=== PATIENT | male | born 1945 | race Caucasian/White ===

== ENCOUNTER 2017-02-06 16:37 | Inpatient (IN) | payer MEDICARE ==
[~2017-02-06] VITALS: Ht 177.8 cm; Wt 89.0 kg
[2017-02-06 16:51] VITALS: BP 172/79; PULSE 85; RESP 18; TEMP 98.8; O2SAT 99
[2017-02-06] MEDS ORDERED: PRAV40TA2 PO (16:59)
[2017-02-06] MEDS ORDERED: LEVO.05 PO (16:59)
[2017-02-06] MEDS ORDERED: GLIP5TAB8 PO (16:59)
[2017-02-06] MEDS ORDERED: ASPI-516 CHEW (16:59)
[2017-02-06] MEDS ORDERED: AMLO2.5T PO (16:59)
[2017-02-06] MEDS ORDERED: METF500T PO (16:59)
[2017-02-06] MEDS ORDERED: LISI40TA PO (16:59)
[2017-02-06] MEDS ORDERED: SITA1TAB2 PO (16:59)
[2017-02-06 17:00] VITALS: O2SAT 99
[2017-02-06] MEDS ORDERED: SODIUM CHLORIDE 0.9% FLUSH 10 ML FLUSH IVF PRN (17:00)
[2017-02-06] MEDS ORDERED: ONDANSETRON HCL 4 MG/2 ML VIAL IVP ONE (17:00)
[2017-02-06] MEDS ORDERED: MORPHINE SULFATE 4 MG/ML INJ IV PUSH ONE (17:00)
[2017-02-06 17:36] LABS: BASOPHIL # 0.1 TH/MM3 (0-0.2); BASOPHIL % 0.5 % (0.0-2.0); EOSINOPHIL # 0.1 TH/MM3 (0-0.4); EOSINOPHIL % 0.6 % (0.0-4.0); HEMATOCRIT 37.3 % (39.0-51.0); HEMOGLOBIN 12.9 GM/DL (13.0-17.0); LYMPH % 13.4 % (9.0-44.0); LYMPHOCYTE # 1.5 TH/MM3 (1.0-4.8); MEAN CELL VOLUME 85.8 FL (80.0-100.0); MEAN CORPUSCULAR HEMOGLOBIN 29.6 PG (27.0-34.0); MEAN CORPUSCULAR HGB CONC 34.4 % (32.0-36.0); MEAN PLATELET VOLUME 8.6 FL (7.0-11.0); MONO % 6.5 % (0.0-8.0); MONOCYTE # 0.7 TH/MM3 (0-0.9); PLATELET COUNT 184 TH/MM3 (150-450); RED BLOOD COUNT 4.35 MIL/MM3 (4.50-5.90); RED CELL DISTRIBUTION WIDTH 13.8 % (11.6-17.2); WHITE BLOOD COUNT 11.3 TH/MM3 (4.0-11.0)
[2017-02-06] MEDS ORDERED: MORPHINE SULFATE 8 MG/ML INJ ONE (17:45)
[2017-02-06 17:47] LABS: BILIRUBIN, URINE NEG (NEG); BLOOD, URINE NEG (NEG); GLUCOSE,URINE NEG (NEG); HYALINE CAST, URINE 6 /lpf (RARE); KETONE, URINE NEG (NEG); MUCUS URINE FEW /lpf (OCC); NITRITE,URINE NEG (NEG); PH, URINE 5.5 (5.0-8.5); URINE COLOR YELLOW (YELLW/STRAW); URINE LEUKOCYTE ESTERASE NEG (NEG)
[2017-02-06 17:51] LABS: PROTHROMBIN TIME - PATIENT 10.5 SEC (9.8-11.6)
--- NOTE | 2017-02-06 17:56 | RADRPT ---
EXAM DATE/TIME: 02/06/2017 17:18 [facility] COMPARISON: No previous studies available for comparison. INDICATIONS : Fall today. Trauma. MEDICAL HISTORY : Hypertension. Diabetes mellitus type II. SURGICAL HISTORY : None. ENCOUNTER: Initial ACUITY: 1 day PAIN SCORE: 0/10 LOCATION: Bilateral Chest. FINDINGS: The lungs are clear without infiltrate, nodule, or mass. There is no appreciable pleural effusion fo r technique. Heart and mediastinum are unremarkable. CONCLUSION: No acute cardiopulmonary disease. Sofia Nicholson MD on February 06, 2017 at 17:52 Board Certified Radiologist. This report was verified electronically.
[2017-02-06 17:57] LABS: ALBUMIN 3.4 GM/DL (3.4-5.0); ALT (GPT) 18 U/L (12-78); AST (GOT) 15 U/L (15-37); BICARBONATE 25.7 MEQ/L (21.0-32.0); BLOOD UREA NITROGEN 28 MG/DL (7-18); CALCIUM 9.6 MG/DL (8.5-10.1); CHLORIDE 109 MEQ/L (98-107); CREATININE 1.02 MG/DL (0.60-1.30); GLOMERULAR FILTRATION RATE 72 ML/MIN (>89); GLUCOSE,RANDOM 126 MG/DL (74-106); SODIUM (NA) 142 MEQ/L (136-145)
--- NOTE | 2017-02-06 17:58 | RADRPT ---
EXAM DATE/TIME: 02/06/2017 17:18 [facility] COMPARISON: No previous studies available for comparison. INDICATIONS : Fell today. Compains of right hip pain. MEDICAL HISTORY : None. SURGICAL HISTORY : None. ENCOUNTER: Initial ACUITY: 1 day PAIN SCORE: 9/10 LOCATION: Right Hip. FINDINGS: There is a fracture of greater trochanter slightly . Bony structures are osteopenic. CONCLUSION: Right greater trochanteric fracture. Sofia Nicholson MD on February 06, 2017 at 17:55 Board Certified Radiologist. This report was verified electronically.
[2017-02-06 17:59] LABS: ALKALINE PHOSPHATASE 74 U/L (45-117); TOTAL BILIRUBIN ADULT 0.3 MG/DL (0.2-1.0); TOTAL PROTEIN 6.8 GM/DL (6.4-8.2)
[2017-02-06] MEDS ORDERED: NS + KCL 20 MEQ INJ 1,000 ML IV SCH (18:15)
--- NOTE | 2017-02-06 18:15 | PD ---
HPI Chief Complaint: Fall Time Seen by Provider: 16:44 Travel History International Travel<30 days: No Contact w/Intl Traveler<30days: No Traveled to known affect area: No History of Present Illness HPI The patient is a 71-year-old male who presents emergency department via EMS for right hip pain after fall. The patient states he fell in his driveway earlier today, landing on the right hip. The patient was unable to bear weight or ambulate after the fall. The pain is located in the right hip and radiates into the right leg. He denies any loss of consciousness with the fall. The patient denies any headache, neck pain, chest pain, shortness breath , nausea, vomiting, or abdominal pain. The patient recently moved to the area from the [facility], does not have a local primary physician. He does not have a local orthopedist. He denies any numbness certainly to the right lower extremity. The patient's symptoms are moderate, there are no current alleviating or exacerbating factors. The patient did receive morphine 2 mg intravenously prior to arrival by EMS. PFSH Past Medical History High Cholesterol: Yes Diabetes: Yes Patient Takes Glucophage: Yes Hypertension: Yes Thyroid Disease: Yes Past Surgical History Narrative Surgical Tonsillectomy Other Surgery: Yes (THYROIDECTOMY) Social History Alcohol Use: No Tobacco Use: No Substance Use: No Allergies-Medications (Allergen,Severity, Reaction): Coded Allergies: Sulfa (Sulfonamide Antibiotics) (Verified Allergy, Unknown, 02/06/17) bee venom protein (honey bee) (Verified Allergy, Unknown, 02/06/17) Reported Meds & Prescriptions Reported Meds & Active Scripts Active Reported Januvia (Sitagliptin Phosphate) 100 Mg Tab 100 Mg PO DAILY Metformin (Metformin HCl) 500 Mg Tab 500 Mg PO BIDPC Synthroid (Levothyroxine Sodium) 50 Mcg Tab 50 Mcg PO DAILY Aspirin 81 Mg Chew 81 Mg CHEW ONCE Lisinopril 40 Mg Tab 40 Mg PO DAILY Pravastatin 40 Mg Tab 40 Mg PO DAILY Glipizide 5 Mg Tab 2.5 Mg PO DAILY Take 30 minutes before a meal Amlodipine (Amlodipine Besylate) 2.5 Mg Tab 2.5 Mg PO DAILY Review of Systems Except as stated in HPI: all other systems reviewed are Neg General / Constitutional: No: Fever HENT: No: Headaches, Neck Pain Cardiovascular: No: Chest Pain or Discomfort Respiratory: No: Shortness of Breath Gastrointestinal: No: Nausea, Vomiting, Abdominal Pain Musculoskeletal: Positive: Limited ROM, Pain Neurologic: No: Paresthesia, Sensory Disturbance Physical Exam Narrative GENERAL: Awake, alert, pleasant 71-year-old male who appears his stated age and is in no acute respiratory distress. SKIN: Focused skin assessment warm/dry. Superficial abrasion of the extensor surface of the right elbow. HEAD: Atraumatic. Normocephalic. EYES: Pupils equal and round. No scleral icterus. No injection or drainage. ENT: No nasal bleeding or discharge. Mucous membranes pink and moist. NECK: Trachea midline. No JVD. CARDIOVASCULAR: Regular rate and rhythm. No murmur appreciated. RESPIRATORY: No accessory muscle use. Clear to auscultation. Breath sounds equal bilaterally. GASTROINTESTINAL: Abdomen soft, non-tender, nondistended. No rebound tenderness. MUSCULOSKELETAL: The right leg appears slightly longer than the left leg. The patient has tenderness over the lateral aspect of the right hip. Limited ability to flex the hip and knee secondary to pain. Positive dorsalis pedal pulses. NEUROLOGICAL: Awake and alert. No obvious cranial nerve deficits. Motor grossly within normal limits. Normal speech. Sensation is symmetric on the right lower extremity. Nonfocal. PSYCHIATRIC: Appropriate mood and affect; insight and judgment normal. Data Data Last Documented VS Vital Signs Date Time Temp Pulse Resp B/P (MAP) Pulse Ox O2 Delivery O2 Flow Rate FiO2 02/06/17 17:00 99 Room Air 02/06/17 16:51 98.8 85 18 172/79 (110) Orders Orders Electrocardiogram (02/06/17 16:51) Complete Blood Count With Diff (02/06/17 16:51) Comprehensive Metabolic Panel (02/06/17 16:51) Prothrombin Time / Inr (Pt) (02/06/17 16:51) Act Partial Throm Time (Ptt) (02/06/17 16:51) Urinalysis - C+S If Indicated (02/06/17 16:51) Type And Screen (02/06/17 16:51) Chest, Single Ap (02/06/17 16:51) Hip, Uni(Ap&Lat) W Ap Pelvis (02/06/17 16:51) Iv Access Insert/Monitor (02/06/17 16:51) Oximetry (02/06/17 16:51) Ice/Cold Pack (02/06/17 16:51) Ecg Monitoring (02/06/17 16:51) Morphine Inj (Morphine Inj) (02/06/17 17:00) Ondansetron Inj (Zofran Inj) (02/06/17 17:00) Sodium Chloride 0.9% Flush (Ns Flush) (02/06/17 17:00) Morphine Inj (Morphine Inj) (02/06/17 17:45) Labs Laboratory Tests Test 02/06/17 17:10 White Blood Count 11.3 TH/MM3 Red Blood Count 4.35 MIL/MM3 Hemoglobin 12.9 GM/DL Hematocrit 37.3 % Mean Corpuscular Volume 85.8 FL Mean Corpuscular Hemoglobin 29.6 PG Mean Corpuscular Hemoglobin Concent 34.4 % Red Cell Distribution Width 13.8 % Platelet Count 184 TH/MM3 Mean Platelet Volume 8.6 FL Neutrophils (%) (Auto) 79.0 % Lymphocytes (%) (Auto) 13.4 % Monocytes (%) (Auto) 6.5 % Eosinophils (%) (Auto) 0.6 % Basophils (%) (Auto) 0.5 % Neutrophils # (Auto) 9.0 TH/MM3 Lymphocytes # (Auto) 1.5 TH/MM3 Monocytes # (Auto) 0.7 TH/MM3 Eosinophils # (Auto) 0.1 TH/MM3 Basophils # (Auto) 0.1 TH/MM3 CBC Comment AUTO DIFF Prothrombin Time 10.5 SEC Prothromb Time International Ratio 1.0 RATIO Activated Partial Thromboplast Time 20.2 SEC Urine Color YELLOW Urine Turbidity CLEAR Urine pH 5.5 Urine Specific [place] 1.020 Urine Protein TRACE mg/dL Urine Glucose (UA) NEG mg/dL Urine Ketones NEG mg/dL Urine Occult Blood NEG Urine Nitrite NEG Urine Bilirubin NEG Urine Urobilinogen LESS THAN 2.0 MG/DL Urine Leukocyte Esterase NEG Urine WBC 1 /hpf Urine Hyaline Casts 6 /lpf Urine Mucus FEW /lpf Microscopic Urinalysis Comment CATH-CULT NOT IND Blood Urea Nitrogen 28 MG/DL Creatinine 1.02 MG/DL Random Glucose 126 MG/DL Total Protein 6.8 GM/DL Albumin 3.4 GM/DL Calcium Level 9.6 MG/DL Alkaline Phosphatase 74 U/L Aspartate Amino Transf (AST/SGOT) 15 U/L Alanine Aminotransferase (ALT/SGPT) 18 U/L Total Bilirubin 0.3 MG/DL Sodium Level 142 MEQ/L Potassium Level 4.1 MEQ/L Chloride Level 109 MEQ/L Carbon Dioxide Level 25.7 MEQ/L Anion Gap 7 MEQ/L Estimat Glomerular Filtration Rate 72 ML/MIN [facility] Medical Decision Making Medical Screen Exam Complete: Yes Emergency Medical Condition: Yes Medical Record Reviewed: Yes Interpretation(s) Laboratory Tests Test 02/06/17 17:10 White Blood Count 11.3 TH/MM3 Red Blood Count 4.35 MIL/MM3 Hemoglobin 12.9 GM/DL Hematocrit 37.3 % Mean Corpuscular Volume 85.8 FL Mean Corpuscular Hemoglobin 29.6 PG Mean Corpuscular Hemoglobin Concent 34.4 % Red Cell Distribution Width 13.8 % Platelet Count 184 TH/MM3 Mean Platelet Volume 8.6 FL Neutrophils (%) (Auto) 79.0 % Lymphocytes (%) (Auto) 13.4 % Monocytes (%) (Auto) 6.5 % Eosinophils (%) (Auto) 0.6 % Basophils (%) (Auto) 0.5 % Neutrophils # (Auto) 9.0 TH/MM3 Lymphocytes # (Auto) 1.5 TH/MM3 Monocytes # (Auto) 0.7 TH/MM3 Eosinophils # (Auto) 0.1 TH/MM3 Basophils # (Auto) 0.1 TH/MM3 CBC Comment AUTO DIFF Prothrombin Time 10.5 SEC Prothromb Time International Ratio 1.0 RATIO Activated Partial Thromboplast Time 20.2 SEC Urine Color YELLOW Urine Turbidity CLEAR Urine pH 5.5 Urine Specific [place] 1.020 Urine Protein TRACE mg/dL Urine Glucose (UA) NEG mg/dL Urine Ketones NEG mg/dL Urine Occult Blood NEG Urine Nitrite NEG Urine Bilirubin NEG Urine Urobilinogen LESS THAN 2.0 MG/DL Urine Leukocyte Esterase NEG Urine WBC 1 /hpf Urine Hyaline Casts 6 /lpf Urine Mucus FEW /lpf Microscopic Urinalysis Comment CATH-CULT NOT IND Blood Urea Nitrogen 28 MG/DL Creatinine 1.02 MG/DL Random Glucose 126 MG/DL Total Protein 6.8 GM/DL Albumin 3.4 GM/DL Calcium Level 9.6 MG/DL Alkaline Phosphatase 74 U/L Aspartate Amino Transf (AST/SGOT) 15 U/L Alanine Aminotransferase (ALT/SGPT) 18 U/L Total Bilirubin 0.3 MG/DL Sodium Level 142 MEQ/L Potassium Level 4.1 MEQ/L Chloride Level 109 MEQ/L Carbon Dioxide Level 25.7 MEQ/L Anion Gap 7 MEQ/L Estimat Glomerular Filtration Rate 72 ML/MIN EKG reveals sinus rhythm with occasional supraventricular premature complex. Tall R wave in V1. X-ray the right hip reveals right greater trochanteric fracture X-ray chest reveals no acute cardiopulmonary disease Differential Diagnosis Differential diagnosis includes hip fracture, pelvic fracture, mechanical fall, closed head injury, femur fracture, back fracture. Narrative Course IV was established, labs are drawn and sent, the patient was placed on cardiac telemetry monitoring and continuous pulse oximetry monitoring. Chest x-ray, pelvis x-ray, and x-ray the right hip were obtained. The patient was bronze chaser morphine, Zofran, and placed on IV fluids. X-ray of the right hip reveals a greater trochanteric fracture, the patient is unable to bear weight. Therefore , patient will be minutes the medical service, because nothing by mouth, and will need orthopedic consultation. The patient recently moved to the area from [place], does not have a local primary physician and/or orthopedist. Therefore, the on-call medical service was paged for admission. Physician Communication Physician Communication I discussed the patient with the on-call medical service, Dr. Dockery, who agrees with admission. Diagnosis Primary Impression: Closed right hip fracture Qualified Codes: S72.001A - Fracture of unspecified part of neck of right femur, initial encounter for closed fracture Admitting Information Admitting Physician Requests: Admit Condition: Stable Mario Reno MD Feb 06, 2017 18:15
[2017-02-06 18:20] LABS: BANDS 2 % (0-6); LYMPHOCYTES 19 % (9-44); METAMYELOCYTES 1 % (0-1); MONOCYTES 10 % (0-8); POLYS (SEG NEUTROPHILS) 68 % (16-70)
[2017-02-06] MEDS ORDERED: HEPARIN SODIUM - SQ 10,000 UNITS/ML VIAL SQ ONE (18:30)
[2017-02-06] MEDS ORDERED: CITA20TA4 PO (18:41)
[2017-02-06] MEDS ORDERED: MAGNESIUM HYDROXIDE SUSP 30 ML CUP PO PRN (19:00)
[2017-02-06] MEDS ORDERED: BISACODYL 10 MG SUPP RECTAL PRN (19:00)
[2017-02-06] MEDS ORDERED: SODIUM CHLORIDE 0.9% FLUSH 10 ML FLUSH IV FLUSH PRN (19:00)
[2017-02-06] MEDS ORDERED: ONDANSETRON HCL 4 MG/2 ML VIAL IVP PRN (19:00)
[2017-02-06] MEDS ORDERED: SENNOSIDES 8.6 MG TAB PO PRN (19:00)
[2017-02-06] MEDS ORDERED: LACTULOSE SYRUP 20 GM/30 ML CUP PO PRN (19:00)
[2017-02-06] MEDS ORDERED: PILL SPLITTER OTHER PRN (19:00)
[2017-02-06] MEDS ORDERED: SODIUM CHLOR 0.9% 1000 ML INJ 1,000 ML IV SCH (19:00)
[2017-02-06] MEDS ORDERED: MORPHINE SULFATE 2 MG/ML INJ IV PUSH PRN (19:00)
[2017-02-06] MEDS ORDERED: NALOXONE HCL 0.4 MG/ML AMP IV PUSH PRN (19:00)
--- NOTE | 2017-02-06 19:07 | HHI.HP ---
HPI Service Family Medicine Primary Care Physician Unknown Admission Diagnosis right greater trochanter fracture, inability to bear weight Diagnoses: International Travel<30 Days: No Contact w/Intl Traveler<30days: No Known Affected Area: No History of Present Illness 71 yo male with h/o HTN, DM presenting after a mechanical fall. He was walking on his new driveway which is painted and he slipped due to the rainy weather. Did not hit his head. Denies any symptoms prior to the fall i.e. lightheadedness , dizziness, chest pain, SOB. After the fall he had severe hip pain on the right side and couldn't walk. He dragged himself into the house and called 911 who brought him to the ED. At present he feels well other than hip pain. Review of Systems Constitutional: DENIES: Fever, Weight loss, Chills Endocrine: DENIES: Polydipsia Eyes: DENIES: Blurred vision Ears, nose, mouth, throat: DENIES: Throat pain, Ear Pain Respiratory: DENIES: Cough, Shortness of breath Cardiovascular: DENIES: Chest pain, Palpitations Gastrointestinal: DENIES: Abdominal pain, Black stools, Bloody stools, Constipation, Diarrhea, Nausea, Vomiting Genitourinary: DENIES: Urinary frequency, Dysuria Musculoskeletal: COMPLAINS OF: Joint pain, Muscle aches, DENIES: Stiffness Integumentary: DENIES: Rash Hematologic/lymphatic: DENIES: Bruising Neurologic: DENIES: Abnormal gait, Headache, Localized weakness Psychiatric: DENIES: Anxiety, Depression Past Family Social History Past Medical History DM HTN High cholesterol Past Surgical History Partial thyroidectomy - 1980s L arm surgery after fracture Tonsillectomy Reported Medications Reported Meds & Active Scripts Active Reported Citalopram (Citalopram Hydrobromide) 20 Mg Tab 20 Mg PO DAILY Januvia (Sitagliptin Phosphate) 100 Mg Tab 100 Mg PO DAILY Metformin (Metformin HCl) 500 Mg Tab 500 Mg PO BIDPC Synthroid (Levothyroxine Sodium) 50 Mcg Tab 50 Mcg PO DAILY Aspirin 81 Mg Chew 81 Mg CHEW ONCE Lisinopril 40 Mg Tab 40 Mg PO DAILY Pravastatin 40 Mg Tab 40 Mg PO DAILY Glipizide 5 Mg Tab 2.5 Mg PO DAILY Take 30 minutes before a meal Amlodipine (Amlodipine Besylate) 2.5 Mg Tab 2.5 Mg PO DAILY Allergies: Coded Allergies: Sulfa (Sulfonamide Antibiotics) (Verified Allergy, Unknown, 02/06/17) bee venom protein (honey bee) (Verified Allergy, Unknown, 02/06/17) Active Ordered Medications Current Medications Medications (Trade) Dose Ordered Sig/Nirav Route Start Time Stop Time Status Last Admin Potassium Chloride/Sodium Chloride 1,000 ml @ 100 mls/hr Q10H IV 02/06/17 18:15 (Norvasc) 2.5 mg DAILY PO 02/07/17 09:00 (Aspirin Chew) 81 mg DAILY CHEW 02/07/17 09:00 (Synthroid) 50 mcg DAILY@0600 PO 02/07/17 06:00 (Pravachol) 40 mg DAILY PO 02/07/17 09:00 (CeleXA) 20 mg DAILY PO 02/07/17 09:00 (Prinivil) 40 mg HS PO 02/06/17 21:00 (Pill Splitter) 1 ea UNSCH PRN OTHER 02/06/17 19:00 Sodium Chloride 1,000 ml @ 100 mls/hr Q10H IV 02/06/17 19:00 (NS Flush) 2 ml UNSCH PRN IV FLUSH 02/06/17 19:00 (NS Flush) 2 ml BID IV FLUSH 02/06/17 21:00 (Zofran Inj) 4 mg Q6H PRN IVP 02/06/17 19:00 (Ambien) 5 mg HS PRN PO 02/06/17 21:00 (Narcan Inj) 0.4 mg UNSCH PRN IV PUSH 02/06/17 19:00 (Mary-Colace) 1 tab BID PO 02/06/17 21:00 (Milk Of Magnesia Liq) 30 ml Q12H PRN PO 02/06/17 19:00 (Senokot) 17.2 mg Q12H PRN PO 02/06/17 19:00 (Dulcolax Supp) 10 mg DAILY PRN RECTAL 02/06/17 19:00 (Lactulose Liq) 30 ml DAILY PRN PO 02/06/17 19:00 (Morphine Inj) 2 mg Q3H PRN IV PUSH 02/06/17 19:00 (Morphine Inj) 4 mg Q3H PRN IV PUSH 02/06/17 19:15 Acetaminophen 100 ml @ 400 mls/hr Q6H IV 02/06/17 20:00 (D50w (Vial) Inj) 50 ml UNSCH PRN IV PUSH 02/06/17 19:15 (Glucagon Inj) 1 mg UNSCH PRN OTHER 02/06/17 19:15 (NovoLOG SUPPLEMENTAL SCALE) 1 ACHS SLIDING SCALE SQ 02/06/17 21:00 (Levemir Inj) 5 units Q12HR SQ 02/06/17 21:00 Family History Father - HTN Mother - HTN, COPD Social History Tob - Light smoking but quit 30 years ago Alc - will have a glass of scotch a week (1 to 1.5 oz) Drugs - none Lives independently in a house with his dog Physical Exam Vital Signs Vital Signs Date Time Temp Pulse Resp B/P (MAP) Pulse Ox O2 Delivery O2 Flow Rate FiO2 02/06/17 17:00 99 Room Air 02/06/17 16:51 98.8 85 18 172/79 (110) 99 Physical Exam GENERAL: WDWN, NAD SKIN: No rashes, ecchymoses or lesions. Cool and dry. HEAD: NC/AT EYES: PERRL. EOMI. No conjunctival injection or drainage. ENT: MMM, OP without erythema, tonsillar swelling, or exudate. NECK: Supple. No JVD. CARDIOVASCULAR: NRRR. Normal S1/S2. No MRG RESPIRATORY: CTAB. No crackles or wheezes. GASTROINTESTINAL: Abdomen soft, non-distended, non-tender. No hepato- splenomegaly or palpable masses. MUSCULOSKELETAL: Extremities without clubbing, cyanosis, or edema. R leg shortened, externally rotated. No ecchymosis over R hip. NEUROLOGICAL: Awake and alert. Cranial nerves II through XII grossly intact. Normal speech. Laboratory Laboratory Tests Test 02/06/17 17:10 White Blood Count 11.3 Red Blood Count 4.35 Hemoglobin 12.9 Hematocrit 37.3 Mean Corpuscular Volume 85.8 Mean Corpuscular Hemoglobin 29.6 Mean Corpuscular Hemoglobin Concent 34.4 Red Cell Distribution Width 13.8 Platelet Count 184 Mean Platelet Volume 8.6 Neutrophils (%) (Auto) 79.0 Lymphocytes (%) (Auto) 13.4 Monocytes (%) (Auto) 6.5 Eosinophils (%) (Auto) 0.6 Basophils (%) (Auto) 0.5 Neutrophils # (Auto) 9.0 Lymphocytes # (Auto) 1.5 Monocytes # (Auto) 0.7 Eosinophils # (Auto) 0.1 Basophils # (Auto) 0.1 CBC Comment AUTO DIFF Differential Total Cells Counted 100 Neutrophils % (Manual) 68 Band Neutrophils % 2 Lymphocytes % 19 Monocytes % 10 Neutrophils # (Manual) 8.0 Metamyelocytes 1 Differential Comment FINAL DIFF MANUAL Platelet Estimate NORMAL Platelet Morphology Comment NORMAL Prothrombin Time 10.5 Prothromb Time International Ratio 1.0 Activated Partial Thromboplast Time 20.2 Urine Color YELLOW Urine Turbidity CLEAR Urine pH 5.5 Urine Specific [place] 1.020 Urine Protein TRACE Urine Glucose (UA) NEG Urine Ketones NEG Urine Occult Blood NEG Urine Nitrite NEG Urine Bilirubin NEG Urine Urobilinogen LESS THAN 2.0 Urine Leukocyte Esterase NEG Urine WBC 1 Urine Hyaline Casts 6 Urine Mucus FEW Microscopic Urinalysis Comment CATH-CULT NOT IND Blood Urea Nitrogen 28 Creatinine 1.02 Random Glucose 126 Total Protein 6.8 Albumin 3.4 Calcium Level 9.6 Alkaline Phosphatase 74 Aspartate Amino Transf (AST/SGOT) 15 Alanine Aminotransferase (ALT/SGPT) 18 Total Bilirubin 0.3 Sodium Level 142 Potassium Level 4.1 Chloride Level 109 Carbon Dioxide Level 25.7 Anion Gap 7 Estimat Glomerular Filtration Rate 72 Result Diagram: 02/06/17 1710 02/06/17 1710 Imaging Last Impressions Hip and Pelvis X-Ray 02/06/171650 Signed Impressions: Service Date/Time: Monday, February 06, 2017 17:18 - CONCLUSION: Right greater trochanteric fracture. Sofia Nicholson MD Chest X-Ray 02/06/171650 Signed Impressions: Service Date/Time: Monday, February 06, 2017 17:18 - CONCLUSION: No acute cardiopulmonary disease. MD Yahir Medinai VTE Risk Assessment Michelle VTE Risk Assessment: Mod/High Risk (score >= 2) Assessment and Plan Assessment and Plan 71 yo male with HTN, DM presenting with: Problem List: (1) Closed right hip fracture ICD Codes: S72.001A - Fracture of unspecified part of neck of right femur, initial encounter for closed fracture Status: Acute Plan: XR reveals trochanteric fracture of R hip - Ortho consulted, appreciate recs - CT of R hip; depending on extent of fracture will either perform surgery or conservative Tx - Pain control: IV tylenol scheduled Q6H, Morphine Q3H PRN pain scale - Heparin 5000 units SQ x1 now; further heparinization depending on need for surgery and timing of surgery (2) Essential hypertension ICD Codes: I10 - Essential (primary) hypertension Status: Chronic Plan: Chronic, well-controlled, though BP slightly elevated on admission - Continue home lisinopril, amlodipine - Give lisinopril now since he takes it at nighttime (3) Type 2 diabetes mellitus ICD Codes: E11.9 - Type 2 diabetes mellitus without complications Plan: DM well-controlled at home On sitagliptin, metformin, glipizide - Hold home diabetes meds; can resume after surgery - Accu-checks AC/HS - Levemir 5 units BID - Novolog SSI, very low dose (4) Hyperlipidemia ICD Codes: E78.5 - Hyperlipidemia, unspecified Status: Chronic Plan: Continue home pravastatin (5) FEN/PPX Plan: Fluids: NS at 100 cc/hr while NPO Electrolytes: Monitor and replace PRN Nutrition: Diet NPO except meds until known whether patient will need surgery; then diabetic w/ 2 gm sodium restrict per pt request DVT: See above Depression: Continue home citalopram CODE STATUS: Full code dw Dr. Cedeño wdw Dr. Grajeda Physician Certification 2 Midnight Certification Type: Admission for Inpatient Services Order for Inpatient Services The services are ordered in accordance with Medicare regulations or non- Medicare payer requirements, as applicable. In the case of services not specified as inpatient-only, they are appropriately provided as inpatient services in accordance with the 2-midnight benchmark. Estimated LOS (days): 3 days is the estimated time the patient will need to remain in the hospital, assuming treatment plan goals are met and no additional complications. Post-Hospital Plan: Not yet determined (SNF vs Rehab) Problem Qualifiers (1) Closed right hip fracture: Qualified Codes: S72.001A - Fracture of unspecified part of neck of right femur , initial encounter for closed fracture (2) Type 2 diabetes mellitus: Qualified Codes: E11.9 - Type 2 diabetes mellitus without complications (3) Hyperlipidemia: Qualified Codes: E78.5 - Hyperlipidemia, unspecified Da Dockery MD Feb 06, 2017 7:07 pm
[2017-02-06] MEDS ORDERED: GLUCAGON 1 MG/ML VIAL OTHER PRN (19:15)
[2017-02-06] MEDS ORDERED: DEXTROSE 50% IN WATER 50 ML VIAL(D50) IV PUSH PRN (19:15)
[2017-02-06 19:31] VITALS: BP 173/77; PULSE 86; RESP 17; TEMP 96.8; O2SAT 94
[2017-02-06] MEDS: INSULIN ASPART SUPPLEMENTAL SCALE SQ SCH (21:00)
[2017-02-06] MEDS ORDERED: ZOLPIDEM TARTRATE 5 MG TAB PO PRN (21:00)
[2017-02-06] MEDS: INSULIN DETEMIR 100 UNITS/ML VIAL SQ SCH (22:07)
[2017-02-06] MEDS: ACETAMINOPHEN 1000 MG/100 ML 100 ML IV SCH (22:07)
[2017-02-06] MEDS: MORPHINE SULFATE 2 MG/ML INJ IV PUSH PRN (22:07)
[2017-02-06] MEDS: DOCUSATE SODIUM 50 MG/SENNA 8.6 MG TAB PO SCH (22:08)
[2017-02-06] MEDS: SODIUM CHLORIDE 0.9% FLUSH 10 ML FLUSH IV FLUSH SCH (22:08)
[2017-02-06] MEDS: LISINOPRIL 20 MG TAB PO SCH (22:08)
[2017-02-06] MEDS ORDERED: POVIDONE IODINE 5% (ANTISEPSIS KIT) 4 APPLICATIONS EACH NARE PRN (23:45)
[2017-02-06] MEDS ORDERED: SODIUM CHLORID 0.9% 500 ML IV PRN (23:45)
[2017-02-06] MEDS ORDERED: LACTATED RINGER'S 1000 ML IV PRN (23:45)
[2017-02-06] MEDS ORDERED: CHLORHEXIDINE GLUCONATE 2 % 1 PACK (2 CLOTHS) TOPICAL PRN (23:45)
[2017-02-07] VITALS: BP 149/74; PULSE 82; RESP 17; TEMP 99.2; O2SAT 94
--- NOTE | 2017-02-07 00:59 | RADRPT ---
EXAM DATE/TIME: 02/07/2017 00:34 [facility] COMPARISON: No previous studies available for comparison. INDICATIONS : Fall, Evaluate right hip fracture. RADIATION DOSE: 23.99 CTDIvol (mGy) MEDICAL HISTORY : Hypertension. Diabetes mellitus type 2. SURGICAL HISTORY : None. ENCOUNTER: Initial ACUITY: 1 day PAIN SCALE: 10/10 LOCATION: Right hip TECHNIQUE: Volumetric scanning of the hip was performed. Using automated exposure control and adjustment of the mA and/or kV according to patient size, radiation dose was kept as low as reasonably achievable to o btain optimal diagnostic quality images. DICOM format image data is available electronically for rev iew and comparison. FINDINGS: There is acute fracture through the greater trochanter. 2 mm of diastases of the fracture fragments. No extension to the lesser trochanter or femoral neck. Femoral head remains in contact with the aceta bulum. The pelvis is intact otherwise. No hematoma observed. Atherosclerotic changes involving the co mmon femoral artery and proximal SFA/profunda femoris. CONCLUSION: 1. Acute fracture involving the greater trochanter with approximately 2 mm of diastases of the fractu re fragments. Deuce Martin Jr., MD on February 07, 2017 at 0:55 Board Certified Radiologist. This report was verified electronically.
[2017-02-07] MEDS: ACETAMINOPHEN 1000 MG/100 ML 100 ML IV SCH ×4 (02:16→20:33)
[2017-02-07 03:45] VITALS: BP 138/73; PULSE 75; RESP 17; TEMP 98.1; O2SAT 96
[2017-02-07] MEDS: LEVOTHYROXINE SODIUM 50 MCG TAB PO SCH (05:40)
[2017-02-07] MEDS: MORPHINE SULFATE 2 MG/ML INJ IV PUSH PRN ×3 (05:41→20:36)
[2017-02-07 06:19] LABS: HEMATOCRIT 35.4 % (39.0-51.0); HEMOGLOBIN 11.7 GM/DL (13.0-17.0); MEAN CELL VOLUME 85.9 FL (80.0-100.0); MEAN CORPUSCULAR HEMOGLOBIN 28.4 PG (27.0-34.0); MEAN PLATELET VOLUME 8.2 FL (7.0-11.0); PLATELET COUNT 167 TH/MM3 (150-450); RED BLOOD COUNT 4.13 MIL/MM3 (4.50-5.90); RED CELL DISTRIBUTION WIDTH 13.7 % (11.6-17.2); WHITE BLOOD COUNT 10.5 TH/MM3 (4.0-11.0)
[2017-02-07 06:40] LABS: BICARBONATE 29.7 MEQ/L (21.0-32.0); CALCIUM 9.1 MG/DL (8.5-10.1); CREATININE 0.95 MG/DL (0.60-1.30)
--- NOTE | 2017-02-07 06:53 | PD.ORT.PN ---
Subjective Subjective Remarks Slip and fall on painted driveway Right hip pain. Was unable to ambulate Objective Vitals Vital Signs Date Time Temp Pulse Resp B/P (MAP) Pulse Ox O2 Delivery O2 Flow Rate FiO2 02/07/17 03:45 98.1 75 17 138/73 (94) 96 02/07/17 00:00 99.2 82 17 149/74 (99) 94 02/06/17 22:17 02/06/17 19:31 96.8 86 17 173/77 (109) 94 02/06/17 17:00 99 Room Air 02/06/17 16:51 98.8 85 18 172/79 (110) 99 I/O 02/06/17 02/06/17 02/06/17 02/07/17 02/07/17 02/07/17 07:00 15:00 23:00 07:00 15:00 23:00 Intake Total 240 ml 0 ml Output Total 150 ml Balance 90 ml 0 ml Intake Oral 240 ml 0 ml Output Urine Total 150 ml # Voids 1 # Bowel Movements 0 0 Result Diagram: 02/07/17 0400 02/07/17 0400 Other Results Laboratory Tests Test 02/06/17 17:10 Prothromb Time International Ratio 1.0 RATIO Prothrombin Time 10.5 SEC (9.8-11.6) Imaging Last 24 hours Impressions Hip and Pelvis X-Ray 02/06/171650 Signed Impressions: Service Date/Time: Monday, February 06, 2017 17:18 - CONCLUSION: Right greater trochanteric fracture. Sofia Nicholson MD Chest X-Ray 02/06/171650 Signed Impressions: Service Date/Time: Monday, February 06, 2017 17:18 - CONCLUSION: No acute cardiopulmonary disease. Sofia Nicholson MD Objective Remarks Bilateral upper extremities: Full range of motion neurovascular intact Left lower extremity: Full range of motion and neurovascularly intact Right lower extremity: Pain to palpation over greater trochanter. No pain at knee or ankle. Distally intact sensation with good capillary refills Assessment & Plan Assessment and Plan Right greater trochanter fracture Nonoperative treatment with 50% weightbearing right lower extremity Walker training and no active abduction of hip Plan for home discharge if doing well with physical therapy Teodoro Gooden Jr. Feb 07, 2017 06:53
[2017-02-07] MEDS ORDERED: HYDR-3580 PO (06:55)
[2017-02-07] MEDS ORDERED: VITA500012 PO (06:55)
[2017-02-07] MEDS ORDERED: WALKER WHEELS/F1 MIS (06:55)
[2017-02-07] MEDS ORDERED: CALCTAB19 PO (06:55)
--- NOTE | 2017-02-07 07:34 | MB ---
cc: ERNESTO MCCLENDON DATE OF CONSULTATION 02/07/2017 REASON FOR CONSULTATION Right hip greater trochanteric fracture. CONSULTING PHYSICIAN Dr. Alissa Grajeda HISTORY Nicanor is a 71-year-old male who recently moved to [place]. He slipped in his driveway. He states that it was recently painted and it was slippery because it was wet. He fell landing on his right side. He had difficulty standing and ambulating. He crawled back into the house and called for EMS. He presented to the emergency room. He denies dizziness, syncope or loss of consciousness. His only complaint is his right hip. Pain is worse with movement. X-rays and CT scan were obtained in the emergency room revealing a right hip greater trochanter fracture. PAST MEDICAL HISTORY Illnesses: 1. Diabetes 2. Hypertension 3. High cholesterol Surgeries: 1. Partial thyroidectomy 2. Left arm ORIF 3. Tonsillectomy MEDICATIONS Medications include: 1. Citalopram 2. Januvia 3. Metformin 4. Synthroid 5. Aspirin 6. Lisinopril 7. Pravastatin 8. Glipizide 9. Amlodipine ALLERGIES SULFA SOCIAL HISTORY The patient denies current tobacco use. He has Approximately one drink a week. He denies drug use. He lives independently at home. REVIEW OF SYSTEMS The patient denies headache, visual changes, neck pain, chest pain, shortness of breath, abdominal pain, nausea or recent weight loss or numbness or tingling of extremities. He complains of right hip pain. Pain is worse with movement. PHYSICAL EXAMINATION The patient is a pleasant 71-year male. He is awake and alert. He is alert and oriented times three. He appears well-developed and well-nourished. VITAL SIGNS: Temperature 98.1, pulse 75, respirations 17, blood pressure 138/73, O2 sat 96% on room air. HEAD: The patient is normocephalic. EYES, EARS, NOSE AND THROAT: Pupils are equal. NECK: Soft and nontender. Trachea is midline. ABDOMEN: Soft, nontender. Nondistended. EXTREMITIES: Examination of the bilateral upper extremities reveals no pain with shoulder, elbow or wrist motion. He has intact sensation in all fingers. He has good cap refill in all fingers. Skin is intact to both hands. Radial pulses are palpable. Examination of the right leg reveals tenderness palpation over the greater trochanter. He has mild discomfort with hip range of motion. He has no tenderness around his knee, tibia or ankle. Skin is intact. Dorsalis pedis pulse is palpable. Examination of the left leg reveals no pain with hip, knee or ankle motion. Skin is intact. Dorsalis pedis pulse is palpable. Sensation is intact. X-RAYS X-rays of the right hip were reviewed. X-rays and CT scan reveal a minimally displaced right greater trochanter fracture. IMPRESSION. 1. Right hip greater trochanter fracture. 2. Diabetes 3. Hypertension PLAN Treatment options were discussed with the patient. I discussed both surgical and nonsurgical options. At this point, I would recommend nonoperative treatment. The fracture is well-aligned. The fracture appears to be limited to the greater trochanter and does not appear to extend into the intertrochanteric region. The risks and benefits of surgery and nonsurgical treatment were discussed. At this point, I will ask the patient to mobilize with physical therapy. He may be 50% weight-bearing on his right leg. He is avoid active abduction of his hip. All questions were answered. A mid-level provider in my office, nurse practitioner or PA, may see this patient on a follow-up basis and continue to implement the objective of this plan including: Starting or adjusting medications, injections of muscle, tendon, bursa or joints, cast application, orthotic or brace application, physical therapy, further radiographic studies including x-ray, MRI, CT, ultrasounds or bone scan, vascular studies, neurologic studies, or other specialist consultations, and proceeding with surgical management as appropriate. MD REE Acevedo/FREDIS /6:35 AM /7:12 AM
[2017-02-07 08:00] VITALS: BP 151/67; PULSE 74; RESP 16; TEMP 99.3; O2SAT 95
[2017-02-07] MEDS: INSULIN ASPART SUPPLEMENTAL SCALE SQ SCH ×4 (08:00→20:35)
[2017-02-07] MEDS: amLODIPine BESYLATE 5 MG TAB PO SCH (08:18)
[2017-02-07] MEDS: CITALOPRAM HYDROBROMIDE 20 MG TAB PO SCH (08:18)
[2017-02-07] MEDS: INSULIN DETEMIR 100 UNITS/ML VIAL SQ SCH ×2 (08:18→20:35)
[2017-02-07] MEDS: DOCUSATE SODIUM 50 MG/SENNA 8.6 MG TAB PO SCH ×2 (08:18→20:34)
[2017-02-07] MEDS: PRAVASTATIN SOD 40 MG TAB PO SCH (08:18)
[2017-02-07] MEDS: SODIUM CHLORIDE 0.9% FLUSH 10 ML FLUSH IV FLUSH SCH ×2 (08:18→20:33)
[2017-02-07] MEDS: ASPIRIN 81 MG CHEW TAB CHEW SCH (08:18)
[2017-02-07] MEDS ORDERED: LISINOPRIL 20 MG TAB PO SCH (09:00)
[2017-02-07 12:00] VITALS: BP 137/66; PULSE 66; RESP 16; TEMP 98.5; O2SAT 96
--- NOTE | 2017-02-07 12:22 | HHI.HP ---
[facility] Service Family Medicine Primary Care Physician Unknown Admission Diagnosis right greater trochanter fracture, inability to bear weight Diagnoses: (1) Closed right hip fracture Diagnosis: Principal (2) Essential hypertension Diagnosis: Principal (3) Type 2 diabetes mellitus Diagnosis: Principal (4) Hyperlipidemia Diagnosis: Principal (5) FEN/PPX International Travel<30 Days: No Contact w/Intl Traveler<30days: No Known Affected Area: No History of Present Illness Mr Rojas was a 71 yo male with h/o HTN, DM who presented after a mechanical fall. He was walking on his new driveway which is painted and he slipped due to the rainy weather. Did not hit his head. Denies any symptoms prior to the fall i.e. lightheadedness, dizziness, chest pain, SOB. After the fall he had severe hip pain on the right side and couldn't walk. He dragged himself into the house and called 911 who brought him to the ED. At present he feels well other than hip pain. He is not to have surgery and does not have any complaints today. He objected to 4 people coming into his room, "are you all students? 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 I feel like I'm being talked to like a 8 year old." He did agree to see me (Dr Grajeda ) alone but wanted everyone else to leave the room. He stated initially that he didn't see any need to be examined but then agreed to having his lungs listened to. He evidently had no problems seeing Dr Dockery on admission. Review of Systems Other Constitutional: DENIES: Fever, Weight loss, Chills Endocrine: DENIES: Polydipsia Eyes: DENIES: Blurred vision Ears, nose, mouth, throat: DENIES: Throat pain, Ear Pain Respiratory: DENIES: Cough, Shortness of breath Cardiovascular: DENIES: Chest pain, Palpitations Gastrointestinal: DENIES: Abdominal pain, Black stools, Bloody stools, Constipation, Diarrhea, Nausea, Vomiting Genitourinary: DENIES: Urinary frequency, Dysuria Musculoskeletal: COMPLAINS OF: Joint pain, Muscle aches, DENIES: Stiffness Integumentary: DENIES: Rash Hematologic/lymphatic: DENIES: Bruising Neurologic: DENIES: Abnormal gait, Headache, Localized weakness Psychiatric: DENIES: Anxiety, Depression obtained by dr Dockery on admission as he didn't want to answer questions today Past Family Social History Past Medical History DM HTN High cholesterol Past Surgical History Partial thyroidectomy - 1980s L arm surgery after fracture Tonsillectomy Reported Medications Citalopram (Citalopram Hydrobromide) 20 Mg Tab 20 Mg PO DAILY Januvia (Sitagliptin Phosphate) 100 Mg Tab 100 Mg PO DAILY Metformin (Metformin HCl) 500 Mg Tab 500 Mg PO BIDPC Synthroid (Levothyroxine Sodium) 50 Mcg Tab 50 Mcg PO DAILY Aspirin 81 Mg Chew 81 Mg CHEW ONCE Lisinopril 40 Mg Tab 40 Mg PO DAILY Pravastatin 40 Mg Tab 40 Mg PO DAILY Glipizide 5 Mg Tab 2.5 Mg PO DAILY Take 30 minutes before a meal Amlodipine (Amlodipine Besylate) 2.5 Mg Tab 2.5 Mg PO DAILY Allergies: Coded Allergies: Sulfa (Sulfonamide Antibiotics) (Verified Allergy, Unknown, 02/06/17) bee venom protein (honey bee) (Verified Allergy, Unknown, 02/06/17) Allergies: Coded Allergies: Sulfa (Sulfonamide Antibiotics) (Verified Allergy, Unknown, 02/06/17) bee venom protein (honey bee) (Verified Allergy, Unknown, 02/06/17) Family History Father - HTN Mother - HTN, COPD Social History Tob - Light smoking but quit 30 years ago Alc - will have a glass of scotch a week (1 to 1.5 oz) Drugs - none Lives independently in a house with his dog Physical Exam Vital Signs Vital Signs Date Time Temp Pulse Resp B/P (MAP) Pulse Ox O2 Delivery O2 Flow Rate FiO2 02/07/17 08:24 Room Air 02/07/17 08:00 99.3 74 16 151/67 (95) 95 02/07/17 03:45 98.1 75 17 138/73 (94) 96 02/07/17 00:00 99.2 82 17 149/74 (99) 94 02/06/17 22:17 02/06/17 19:31 96.8 86 17 173/77 (109) 94 02/06/17 17:00 99 Room Air 02/06/17 16:51 98.8 85 18 172/79 (110) 99 Physical Exam GENERAL: WDWN, NAD SKIN: No rashes, ecchymoses or lesions. Cool and dry. HEAD: NC/AT EYES: PERRL. EOMI. No conjunctival injection or drainage. ENT: MMM, OP without erythema, tonsillar swelling, or exudate. NECK: Supple. No JVD. CARDIOVASCULAR: NRRR. Normal S1/S2. No MRG RESPIRATORY: CTAB. No crackles or wheezes. GASTROINTESTINAL: Abdomen soft, non-distended, non-tender. No hepato- splenomegaly or palpable masses. MUSCULOSKELETAL: Extremities without clubbing, cyanosis, or edema. R leg shortened, externally rotated. No ecchymosis over R hip. NEUROLOGICAL: Awake and alert. Cranial nerves II through XII grossly intact. Normal speech. exam done by Dr Dockery on admission as he refused most of the exam today Laboratory Laboratory Tests Test 02/06/17 17:10 02/07/17 04:00 White Blood Count 11.3 10.5 Red Blood Count 4.35 4.13 Hemoglobin 12.9 11.7 Hematocrit 37.3 35.4 Mean Corpuscular Volume 85.8 85.9 Mean Corpuscular Hemoglobin 29.6 28.4 Mean Corpuscular Hemoglobin Concent 34.4 33.0 Red Cell Distribution Width 13.8 13.7 Platelet Count 184 167 Mean Platelet Volume 8.6 8.2 Neutrophils (%) (Auto) 79.0 Lymphocytes (%) (Auto) 13.4 Monocytes (%) (Auto) 6.5 Eosinophils (%) (Auto) 0.6 Basophils (%) (Auto) 0.5 Neutrophils # (Auto) 9.0 Lymphocytes # (Auto) 1.5 Monocytes # (Auto) 0.7 Eosinophils # (Auto) 0.1 Basophils # (Auto) 0.1 CBC Comment AUTO DIFF Differential Total Cells Counted 100 Neutrophils % (Manual) 68 Band Neutrophils % 2 Lymphocytes % 19 Monocytes % 10 Neutrophils # (Manual) 8.0 Metamyelocytes 1 Differential Comment FINAL DIFF MANUAL Platelet Estimate NORMAL Platelet Morphology Comment NORMAL Prothrombin Time 10.5 Prothromb Time International Ratio 1.0 Activated Partial Thromboplast Time 20.2 Urine Color YELLOW Urine Turbidity CLEAR Urine pH 5.5 Urine Specific [place] 1.020 Urine Protein TRACE Urine Glucose (UA) NEG Urine Ketones NEG Urine Occult Blood NEG Urine Nitrite NEG Urine Bilirubin NEG Urine Urobilinogen LESS THAN 2.0 Urine Leukocyte Esterase NEG Urine WBC 1 Urine Hyaline Casts 6 Urine Mucus FEW Microscopic Urinalysis Comment CATH-CULT NOT IND Blood Urea Nitrogen 28 24 Creatinine 1.02 0.95 Random Glucose 126 70 Total Protein 6.8 Albumin 3.4 Calcium Level 9.6 9.1 Alkaline Phosphatase 74 Aspartate Amino Transf (AST/SGOT) 15 Alanine Aminotransferase (ALT/SGPT) 18 Total Bilirubin 0.3 Sodium Level 142 142 Potassium Level 4.1 4.0 Chloride Level 109 108 Carbon Dioxide Level 25.7 29.7 Anion Gap 7 4 Estimat Glomerular Filtration Rate 72 78 Result Diagram: 02/07/170 02/07/170 Imaging Last Impressions Hip and Pelvis X-Ray 02/06/171650 Signed Impressions: Service Date/Time: Monday, February 06, 2017 17:18 - CONCLUSION: Right greater trochanteric fracture. Sofia Nicholson MD Chest X-Ray 02/06/171650 Signed Impressions: Service Date/Time: Monday, February 06, 2017 17:18 - CONCLUSION: No acute cardiopulmonary disease. Sofia Nicholson MD Caprini VTE Risk Assessment Caprini VTE Risk Assessment: Mod/High Risk (score >= 2) Caprini Risk Assessment Model Point Value = 1 Point Value = 2 Point Value = 3 Point Value = 5 Age 41-60 Minor surgery BMI > 25 kg/m2 Swollen legs Varicose veins or History of unexplained or recurrent spontaneous Oral contraceptives or hormone replacement Sepsis (< 1 month) Serious lung disease, including pneumonia (< 1 month) Abnormal pulmonary function Acute myocardial infarction Congestive heart failure (< 1 month) History of inflammatory bowel disease Medical patient at bed rest Age 61-74 Arthroscopic surgery Major open surgery (> 45 min) Laparoscopic surgery (> 45 min) Malignancy Confined to bed (> 72 hours) Immobilizing plaster cast Central venous access Age >= 75 History of VTE Family history of VTE Factor V Leiden Prothrombin [id number] Lupus anticoagulant Anticardiolipin antibodies Elevated serum homocysteine Heparin-induced thrombocytopenia Other congenital or acquired thrombophilia Stroke (< 1 month) Elective arthroplasty Hip, pelvis, or leg fracture Acute spinal cord injury (< 1 month) Prophylaxis Regimen Total Risk Factor Score Risk Level Prophylaxis Regimen 0-1 Low Early ambulation 2 Moderate Order ONE of the following: *Sequential Compression Device (SCD) *Heparin 5000 units SQ BID 3-4 Higher Order ONE of the following medications: *Heparin 5000 units SQ TID *Enoxaparin/Lovenox 40 mg SQ daily (WT < 150 kg, CrCl > 30 mL/min) *Enoxaparin/Lovenox 30 mg SQ daily (WT < 150 kg, CrCl > 10-29 mL/min) *Enoxaparin/Lovenox 30 mg SQ BID (WT < 150 kg, CrCl > 30 mL/min) AND/OR *Sequential Compression Device (SCD) 5 or more Highest Order ONE of the following medications: *Heparin 5000 units SQ TID (Preferred with Epidurals) *Enoxaparin/Lovenox 40 mg SQ daily (WT < 150 kg, CrCl > 30 mL/min) *Enoxaparin/Lovenox 30 mg SQ daily (WT < 150 kg, CrCl > 10-29 mL/min) *Enoxaparin/Lovenox 30 mg SQ BID (WT < 150 kg, CrCl > 30 mL/min) AND *Sequential Compression Device (SCD) Assessment and Plan Assessment and Plan 71 yo male with HTN, DM presenting with: will have either Dr Dockery or myself see this pt alone. he does not want students to see him. he has not requested changing to another service Problem List: (1) Closed right hip fracture ICD Codes: S72.001A - Fracture of unspecified part of neck of right femur, initial encounter for closed fracture Status: Acute Plan: XR reveals trochanteric fracture of R hip - Ortho consulted, appreciate recs - CT of R hip; conservative Tx - Pain control: IV tylenol scheduled Q6H, Morphine Q3H PRN pain scale - Heparin 5000 units SQ x1 now; further heparinization depending on need for surgery and timing of surgery (2) Essential hypertension ICD Codes: I10 - Essential (primary) hypertension Status: Chronic Plan: Chronic, well-controlled, though BP slightly elevated on admission probably from pain - Continue home lisinopril, amlodipine - Give lisinopril now since he takes it at nighttime (3) Type 2 diabetes mellitus ICD Codes: E11.9 - Type 2 diabetes mellitus without complications Plan: DM well-controlled at home On sitagliptin, metformin, glipizide - Hold home diabetes meds; can resume after surgery - Accu-checks AC/HS - Levemir 5 units BID - Novolog SSI, very low dose -his glucoses have been very low. will leave on sliding scale for now as he may not be eating much (4) Hyperlipidemia ICD Codes: E78.5 - Hyperlipidemia, unspecified Status: Chronic Plan: Continue home pravastatin (5) FEN/PPX Plan: Fluids: NS at 100 cc/hr while NPO, heplock now Electrolytes: Monitor and replace PRN Nutrition: Diet NPO initially except meds; then diabetic w/ 2 gm sodium restrict per pt request (on regular diet now) DVT: See above Depression: Continue home citalopram CODE STATUS: Full code Problem Qualifiers (1) Closed right hip fracture: Qualified Codes: S72.001A - Fracture of unspecified part of neck of right femur , initial encounter for closed fracture (2) Type 2 diabetes mellitus: Qualified Codes: E11.9 - Type 2 diabetes mellitus without complications (3) Hyperlipidemia: Qualified Codes: E78.5 - Hyperlipidemia, unspecified Alissa Grajeda MD Feb 07, 2017 12:22
[2017-02-07 16:00] VITALS: BP 150/78; PULSE 74; RESP 16; TEMP 99.3; O2SAT 93
--- NOTE | 2017-02-07 16:25 | OTSOAPIP ---
TIME SESSION COMPLETED: PM TREATMENT TIME: 0 MINS. CHART REVIEWED. O: ATTEMPTED TO SEE FOR OT ASSESSMENT HOWEVER UNAVAILABLE WITH NURSING. Therapist: DALLAS BROOKS OT/L Signature on file
--- NOTE | 2017-02-07 16:50 | EKG ---
Date Performed: 02/06/2017 Time Performed: 17:53:29 PTAGE: 71 years EKG: Sinus rhythm WITH OCCASIONAL SUPRAVENTRICULAR PREMATURE COMPLEXES SEPTAL MYOCARDIAL INFARCTION ABNORMAL ECG NO PREVIOUS TRACING DOCTOR: Savage Ayon Interpretating Date/Time 02/07/2017 16:50:28
[2017-02-07 20:00] VITALS: BP 152/75; PULSE 80; RESP 18; TEMP 99.1; O2SAT 96
[2017-02-07] MEDS: LISINOPRIL 20 MG TAB PO SCH (20:34)
[2017-02-07] MEDS: HEPARIN SODIUM - SQ 10,000 UNITS/ML VIAL SQ SCH (20:35)
[2017-02-08] VITALS: BP 144/75; PULSE 78; RESP 18; TEMP 96.3; O2SAT 95
[2017-02-08] MEDS: ACETAMINOPHEN 1000 MG/100 ML 100 ML IV SCH (01:58)
[2017-02-08] MEDS: LEVOTHYROXINE SODIUM 50 MCG TAB PO SCH (06:00)
[2017-02-08 08:00] VITALS: BP 150/75; PULSE 76; RESP 16; TEMP 97.7; O2SAT 97
--- NOTE | 2017-02-08 08:41 | HHI.FPPN ---
Subjective Remarks No acute events overnight. Feels well. Some hip jin ~4/10 but basically okay. Denies CP/SOB. Tolerating diet well. (Da Riggins MD) Objective Vitals Vital Signs Date Time Temp Pulse Resp B/P (MAP) Pulse Ox O2 Delivery O2 Flow Rate FiO2 02/08/17 00:00 96.3 78 18 144/75 (98) 95 02/07/17 20:00 99.1 80 18 152/75 (100) 96 02/07/17 16:00 99.3 74 16 150/78 (102) 93 02/07/17 12:00 98.5 66 16 137/66 (89) 96 I/O 02/07/17 02/07/17 02/07/17 02/08/17 02/08/17 02/08/17 07:00 15:00 23:00 07:00 15:00 23:00 Intake Total 0 ml 960 ml 240 ml Output Total 1000 ml 700 ml Balance 0 ml -40 ml -460 ml Intake Oral 0 ml 960 ml 240 ml Output Urine Total 1000 ml 700 ml # Voids 1 # Bowel Movements 0 0 (Da Riggins MD) Result Diagram: 02/07/17 0400 02/07/17 0400 Imaging Last Impressions Hip and Pelvis X-Ray 02/06/171650 Signed Impressions: Service Date/Time: Monday, February 06, 2017 17:18 - CONCLUSION: Right greater trochanteric fracture. Sofia Nicholson MD Chest X-Ray 02/06/171650 Signed Impressions: Service Date/Time: Monday, February 06, 2017 17:18 - CONCLUSION: No acute cardiopulmonary disease. Sofia Nicholson MD Lower Extremity CT 02/06/17 0000 Signed Impressions: Service Date/Time: Tuesday, February 07, 2017 00:34 - CONCLUSION: 1. Acute fracture involving the greater trochanter with approximately 2 mm of diastases of the fracture fragments. Deuce Martin Jr., MD Objective Remarks GEN: WDWN, NAD, comfortable CV: NRRR, no MRG LUNGS: CTAB MSK: No edema of BLE NEURO: A&Ox3 Medications and IVs Current Medications Medications (Trade) Dose Ordered Sig/Nirav Route Start Time Stop Time Status Last Admin (Norvasc) 2.5 mg DAILY PO 02/07/17 09:00 02/07/17 08:18 (Aspirin Chew) 81 mg DAILY CHEW 02/07/17 09:00 02/07/17 08:18 (Synthroid) 50 mcg DAILY@0600 PO 02/07/17 06:00 02/08/17 06:00 (Pravachol) 40 mg DAILY PO 02/07/17 09:00 02/07/17 08:18 (CeleXA) 20 mg DAILY PO 02/07/17 09:00 02/07/17 08:18 (Prinivil) 40 mg HS PO 02/06/17 21:00 02/07/17 20:34 (Pill Splitter) 1 ea UNSCH PRN OTHER 02/06/17 19:00 (NS Flush) 2 ml UNSCH PRN IV FLUSH 02/06/17 19:00 (NS Flush) 2 ml BID IV FLUSH 02/06/17 21:00 02/07/17 20:33 (Zofran Inj) 4 mg Q6H PRN IVP 02/06/17 19:00 02/07/17 05:44 (Ambien) 5 mg HS PRN PO 02/06/17 21:00 (Narcan Inj) 0.4 mg UNSCH PRN IV PUSH 02/06/17 19:00 (Mary-Colace) 1 tab BID PO 02/06/17 21:00 02/07/17 20:34 (Milk Of Magnesia Liq) 30 ml Q12H PRN PO 02/06/17 19:00 (Senokot) 17.2 mg Q12H PRN PO 02/06/17 19:00 (Dulcolax Supp) 10 mg DAILY PRN RECTAL 02/06/17 19:00 (Lactulose Liq) 30 ml DAILY PRN PO 02/06/17 19:00 (D50w (Vial) Inj) 50 ml UNSCH PRN IV PUSH 02/06/17 19:15 (Glucagon Inj) 1 mg UNSCH PRN OTHER 02/06/17 19:15 (NovoLOG SUPPLEMENTAL SCALE) 1 ACHS SLIDING SCALE SQ 02/06/17 21:00 (Levemir Inj) 5 units Q12HR SQ 02/06/17 21:00 02/07/17 20:35 (Betadine 5% Antisepsis Kit) 1 applic TRAIN OPERATIONS SUPERVISOR PRN EACH NARE 02/06/17 23:45 02/09/17 23:44 (Chlorhexidine 2% Cloth) 3 pack TRAIN OPERATIONS SUPERVISOR PRN TOPICAL 02/06/17 23:45 02/09/17 23:44 (Heparin Inj) 5,000 units Q12HR SQ 02/07/17 21:00 (Tylenol) 650 mg Q6HR PO 02/08/17 07:30 (Roxicodone) 5 mg Q4H PRN PO 02/08/17 07:30 (Roxicodone) 10 mg Q4H PRN PO 02/08/17 07:30 (Da Riggins MD) A/P Assessment and Plan 71 yo male with HTN, DM presenting with: (Da Riggins MD) Attending Attestation Patient seen and examined. Case reviewed and discussed with the resident team. Agree with plan of care as discussed with me and documented in the resident note. agree with dr riggins (Alissa Grajeda MD) Problem List: (1) Closed right hip fracture ICD Codes: S72.001A - Fracture of unspecified part of neck of right femur, initial encounter for closed fracture Status: Acute Plan: XR reveals trochanteric fracture of R hip CT hip findings as above - Ortho consulted, appreciate recs - Non-operative Tx: partial weight bearing - Pain control: PO tylenol scheduled; oxycodone Q4H for pain scale (2) Essential hypertension ICD Codes: I10 - Essential (primary) hypertension Status: Chronic Plan: Chronic, well-controlled, though BP slightly elevated on admission probably from pain - Continue home lisinopril, amlodipine - Give lisinopril now since he takes it at nighttime (3) Type 2 diabetes mellitus ICD Codes: E11.9 - Type 2 diabetes mellitus without complications Status: Chronic Plan: DM well-controlled at home On sitagliptin, metformin, glipizide BSG last 24 hours 87 - 100 - Resume home diabetes meds except hold glipizide due to risk of hypoglycemia - Accu-checks AC/HS - Discontinue insulin (4) Hyperlipidemia ICD Codes: E78.5 - Hyperlipidemia, unspecified Status: Chronic Plan: Continue home pravastatin (5) FEN/PPX Plan: Fluids: PO only Electrolytes: Monitor and replace PRN Nutrition: Diet diabetic w/ 2 gm sodium restrict per pt request (on regular diet now) DVT: Heparin 5000 units Q12H Depression: Continue home citalopram CODE STATUS: Full code (Da Riggins MD) Problem Qualifiers (1) Closed right hip fracture: Qualified Codes: S72.001A - Fracture of unspecified part of neck of right femur , initial encounter for closed fracture (2) Type 2 diabetes mellitus: Qualified Codes: E11.9 - Type 2 diabetes mellitus without complications (3) Hyperlipidemia: Qualified Codes: E78.5 - Hyperlipidemia, unspecified Da Riggins MD Feb 08, 2017 08:41 Alissa Grajeda MD Feb 11, 2017 13:15
[2017-02-08] MEDS ORDERED: glipiZIDE 5 MG TAB PO SCH (09:00)
[2017-02-08] MEDS: HEPARIN SODIUM - SQ 10,000 UNITS/ML VIAL SQ SCH ×2 (09:00→21:00)
[2017-02-08] MEDS: ASPIRIN 81 MG CHEW TAB CHEW SCH (09:55)
[2017-02-08] MEDS: metFORMIN HCL 500 MG TAB PO SCH ×2 (09:55→17:14)
[2017-02-08] MEDS: amLODIPine BESYLATE 5 MG TAB PO SCH (09:55)
[2017-02-08] MEDS: CITALOPRAM HYDROBROMIDE 20 MG TAB PO SCH (09:55)
[2017-02-08] MEDS: PRAVASTATIN SOD 40 MG TAB PO SCH (09:55)
[2017-02-08] MEDS: DOCUSATE SODIUM 50 MG/SENNA 8.6 MG TAB PO SCH ×2 (09:55→21:52)
[2017-02-08] MEDS: ACETAMINOPHEN 325 MG TAB PO SCH ×4 (10:02→23:59)
[2017-02-08] MEDS: SODIUM CHLORIDE 0.9% FLUSH 10 ML FLUSH IV FLUSH SCH ×2 (10:05→21:53)
[2017-02-08 11:23] LABS: AUTOMATED NEUTROPHIL # 7.3 TH/MM3 (1.8-7.7); BASOPHIL # 0.1 TH/MM3 (0-0.2); BASOPHIL % 0.9 % (0.0-2.0); EOSINOPHIL # 0.2 TH/MM3 (0-0.4); EOSINOPHIL % 1.6 % (0.0-4.0); HEMATOCRIT 36.4 % (39.0-51.0); HEMOGLOBIN 12.4 GM/DL (13.0-17.0); LYMPH % 12.1 % (9.0-44.0); LYMPHOCYTE # 1.2 TH/MM3 (1.0-4.8); MEAN CELL VOLUME 85.8 FL (80.0-100.0); MEAN CORPUSCULAR HEMOGLOBIN 29.2 PG (27.0-34.0); MEAN PLATELET VOLUME 8.1 FL (7.0-11.0); MONO % 8.7 % (0.0-8.0); MONOCYTE # 0.8 TH/MM3 (0-0.9); NEUT % 76.7 % (16.0-70.0); PLATELET COUNT 161 TH/MM3 (150-450); RED BLOOD COUNT 4.24 MIL/MM3 (4.50-5.90); RED CELL DISTRIBUTION WIDTH 13.8 % (11.6-17.2); WHITE BLOOD COUNT 9.6 TH/MM3 (4.0-11.0)
[2017-02-08 11:53] LABS: BICARBONATE 27.8 MEQ/L (21.0-32.0); CREATININE 0.92 MG/DL (0.60-1.30)
[2017-02-08 12:00] VITALS: BP 136/78; PULSE 76; RESP 16; TEMP 97.5; O2SAT 98
[2017-02-08 16:00] VITALS: BP 147/72; PULSE 76; RESP 16; TEMP 98.3; O2SAT 96
[2017-02-08 19:00] VITALS: BP 153/78; PULSE 75; RESP 18; TEMP 98.2; O2SAT 97
[2017-02-08] MEDS: LISINOPRIL 20 MG TAB PO SCH (21:52)
[2017-02-08 23:00] VITALS: BP 169/81; PULSE 70; RESP 18; TEMP 98.3; O2SAT 95
[2017-02-09] MEDS: LEVOTHYROXINE SODIUM 50 MCG TAB PO SCH (06:34)
[2017-02-09] MEDS: ACETAMINOPHEN 325 MG TAB PO SCH (06:37)
[2017-02-09] MEDS: CITALOPRAM HYDROBROMIDE 20 MG TAB PO SCH (07:58)
[2017-02-09] MEDS: PRAVASTATIN SOD 40 MG TAB PO SCH (07:58)
[2017-02-09] MEDS: metFORMIN HCL 500 MG TAB PO SCH (07:58)
[2017-02-09] MEDS: amLODIPine BESYLATE 5 MG TAB PO SCH (07:58)
[2017-02-09] MEDS: DOCUSATE SODIUM 50 MG/SENNA 8.6 MG TAB PO SCH (07:58)
[2017-02-09] MEDS: ASPIRIN 81 MG CHEW TAB CHEW SCH (07:58)
[2017-02-09] MEDS: HEPARIN SODIUM - SQ 10,000 UNITS/ML VIAL SQ SCH (07:59)
[2017-02-09] MEDS: SODIUM CHLORIDE 0.9% FLUSH 10 ML FLUSH IV FLUSH SCH (07:59)
[2017-02-09 08:00] VITALS: BP 150/77; PULSE 71; RESP 18; TEMP 96.9; O2SAT 98
--- NOTE | 2017-02-09 08:56 | HHI.DCPOC ---
Discharge Care Plan Diagnosis: (1) Closed right hip fracture (2) Type 2 diabetes mellitus (3) Essential hypertension (4) Hyperlipidemia Goals to Promote Your Health * To prevent worsening of your condition and complications * To maintain your health at the optimal level Directions to Meet Your Goals Take your medications as prescribed Follow your dietary instruction Follow activity as directed Keep your appointments as scheduled Take your immunizations and boosters as scheduled If your symptoms worsen call your PCP, if no PCP go to Urgent Care Center or Emergency Room Smoking is Dangerous to Your Health. Avoid second hand smoke Call the 24-hour hour crisis hotline for domestic abuse at Da Dockery MD Feb 09, 2017 8:56 am
--- NOTE | 2017-02-09 12:06 | HHI.FPPN ---
Subjective Remarks Seen and examined at 0845. Doing very well, pain mild and not requiring much opiate medication. Denies CP/SOB. Ready to go to rehab. (Da Dockery MD) Objective Vitals Vital Signs Date Time Temp Pulse Resp B/P (MAP) Pulse Ox O2 Delivery O2 Flow Rate FiO2 02/09/17 08:00 96.9 71 18 150/77 (101) 98 02/09/17 07:53 Room Air 02/08/17 23:00 98.3 70 18 169/81 (110) 95 02/08/17 20:00 97 Room Air 02/08/17 19:00 98.2 75 18 153/78 (103) 97 02/08/17 18:14 18 02/08/17 16:00 98.3 76 16 147/72 (97) 96 02/08/17 15:34 18 02/08/17 12:00 97.5 76 16 136/78 (97) 98 I/O 02/08/17 02/08/17 02/08/17 02/09/17 02/09/17 02/09/17 06:59 14:59 22:59 06:59 14:59 22:59 Intake Total 240 ml 600 ml 480 ml 480 ml Output Total 700 ml 625 ml Balance -460 ml 600 ml 480 ml -145 ml Intake Oral 240 ml 600 ml 480 ml 480 ml Output Urine Total 700 ml 625 ml # Voids 2 4 # Bowel Movements 0 0 0 0 (Da Dockery MD) Result Diagram: 02/08/17 1106 02/08/17 1106 Imaging Last Impressions Hip and Pelvis X-Ray 02/06/17 1651 Signed Impressions: Service Date/Time: Monday, February 06, 2017 17:18 - CONCLUSION: Right greater trochanteric fracture. Sofia Nicholson MD Chest X-Ray 02/06/17 1651 Signed Impressions: Service Date/Time: Monday, February 06, 2017 17:18 - CONCLUSION: No acute cardiopulmonary disease. Sofia Nicholson MD Lower Extremity CT 02/06/17 0000 Signed Impressions: Service Date/Time: Tuesday, February 07, 2017 00:34 - CONCLUSION: 1. Acute fracture involving the greater trochanter with approximately 2 mm of diastases of the fracture fragments. Deuce Martin Jr., MD Objective Remarks GEN: WDWN, NAD, comfortable CV: NRRR, no MRG LUNGS: CTAB MSK: No edema of BLE, no bruising of R hip NEURO: A&Ox3 Medications and IVs Current Medications Medications (Trade) Dose Ordered Sig/Nirav Route Start Time Stop Time Status Last Admin (Norvasc) 2.5 mg DAILY PO 02/07/17 09:00 02/09/17 07:58 (Aspirin Chew) 81 mg DAILY CHEW 02/07/17 09:00 02/09/17 07:58 (Synthroid) 50 mcg DAILY@0600 PO 02/07/17 06:00 02/09/17 06:34 (Pravachol) 40 mg DAILY PO 02/07/17 09:00 02/09/17 07:58 (CeleXA) 20 mg DAILY PO 02/07/17 09:00 02/09/17 07:58 (Prinivil) 40 mg HS PO 02/06/17 21:00 02/08/17 21:52 (Pill Splitter) 1 ea UNSCH PRN OTHER 02/06/17 19:00 (NS Flush) 2 ml UNSCH PRN IV FLUSH 02/06/17 19:00 (NS Flush) 2 ml BID IV FLUSH 02/06/17 21:00 02/08/17 21:53 (Zofran Inj) 4 mg Q6H PRN IVP 02/06/17 19:00 02/07/17 05:44 (Ambien) 5 mg HS PRN PO 02/06/17 21:00 (Narcan Inj) 0.4 mg UNSCH PRN IV PUSH 02/06/17 19:00 (Mary-Colace) 1 tab BID PO 02/06/17 21:00 02/09/17 07:58 (Milk Of Magnesia Liq) 30 ml Q12H PRN PO 02/06/17 19:00 (Senokot) 17.2 mg Q12H PRN PO 02/06/17 19:00 (Dulcolax Supp) 10 mg DAILY PRN RECTAL 02/06/17 19:00 (Lactulose Liq) 30 ml DAILY PRN PO 02/06/17 19:00 (D50w (Vial) Inj) 50 ml UNSCH PRN IV PUSH 02/06/17 19:15 (Glucagon Inj) 1 mg UNSCH PRN OTHER 02/06/17 19:15 (Betadine 5% Antisepsis Kit) 1 applic BLOCK TRIMMER PRN EACH NARE 02/06/17 23:45 02/09/17 23:44 (Chlorhexidine 2% Cloth) 3 pack BLOCK TRIMMER PRN TOPICAL 02/06/17 23:45 02/09/17 23:44 (Heparin Inj) 5,000 units Q12HR SQ 02/07/17 21:00 (Tylenol) 650 mg Q6HR PO 02/08/17 07:30 02/09/17 06:37 (Roxicodone) 5 mg Q4H PRN PO 02/08/17 07:30 (Roxicodone) 10 mg Q4H PRN PO 02/08/17 07:30 02/08/17 14:34 (Glucotrol) 2.5 mg DAILY PO 02/08/17 09:00 Future Hold (Glucophage) 500 mg BIDPC PO 02/08/17 09:00 02/09/17 07:58 (Januvia) 100 mg DAILY PO 02/08/17 09:15 02/09/17 07:58 (Da Dockery MD) A/P Assessment and Plan 71 yo male with HTN, DM presenting with: Discharge Planning To SNF for rehab today (Da Dockery MD) Attending Attestation Patient seen and examined. Case reviewed and discussed with the resident team. Agree with plan of care as discussed with me and documented in the resident note. doing well overall (Alissa Grajeda MD) Problem List: (1) Closed right hip fracture ICD Codes: S72.001A - Fracture of unspecified part of neck of right femur, initial encounter for closed fracture Status: Acute Plan: XR reveals trochanteric fracture of R hip CT hip findings as above - Ortho consulted, appreciate recs - Non-operative Tx: partial weight bearing - Discharge to rehab. f/u in office - Pain control: Milam PRN (2) Essential hypertension ICD Codes: I10 - Essential (primary) hypertension Status: Chronic Plan: Chronic, well-controlled, though BP slightly elevated on admission probably from pain - Continue home lisinopril, amlodipine - Give lisinopril now since he takes it at nighttime (3) Type 2 diabetes mellitus ICD Codes: E11.9 - Type 2 diabetes mellitus without complications Status: Chronic Plan: DM well-controlled at home On sitagliptin, metformin, glipizide BSG last 24 hours 87 - 100 - Resume home diabetes meds on D/C (4) Hyperlipidemia ICD Codes: E78.5 - Hyperlipidemia, unspecified Status: Chronic Plan: Continue home pravastatin (Da Dockery MD) Problem Qualifiers (1) Closed right hip fracture: Qualified Codes: S72.001A - Fracture of unspecified part of neck of right femur , initial encounter for closed fracture (2) Type 2 diabetes mellitus: Qualified Codes: E11.9 - Type 2 diabetes mellitus without complications (3) Hyperlipidemia: Qualified Codes: E78.5 - Hyperlipidemia, unspecified Da Dockery MD Feb 09, 2017 12:06 Alissa Grajeda MD Feb 11, 2017 13:18
--- NOTE | 2017-02-09 17:32 | HHI.DS ---
Discharge Summary Admission Date Feb 06, 2017 at 6:18 pm Discharge Date: Feb 09, 2017 Admitting Diagnosis right greater trochanter fracture, inability to bear weight (1) Closed right hip fracture Diagnosis: Principal ICD Codes: S72.001A - Fracture of unspecified part of neck of right femur, initial encounter for closed fracture Status: Acute (2) Essential hypertension Diagnosis: Secondary ICD Codes: I10 - Essential (primary) hypertension Status: Chronic (3) Type 2 diabetes mellitus Diagnosis: Secondary ICD Codes: E11.9 - Type 2 diabetes mellitus without complications Status: Chronic (4) Hyperlipidemia Diagnosis: Secondary ICD Codes: E78.5 - Hyperlipidemia, unspecified Status: Chronic [facility] - Dr. Branham, Dr. Morel Brief History Mr Rojas was a 71 yo male with h/o HTN, DM who presented after a mechanical fall. He was walking on his new driveway which is painted and he slipped due to the rainy weather. Did not hit his head. Denies any symptoms prior to the fall i.e. lightheadedness, dizziness, chest pain, SOB. After the fall he had severe hip pain on the right side and couldn't walk. He dragged himself into the house and called 911 who brought him to the ED. At present he feels well other than hip pain. He is not to have surgery and does not have any complaints today. He objected to 4 people coming into his room, "are you all students? 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 I feel like I'm being talked to like a 8 year old." He did agree to see me (Dr Grajeda ) alone but wanted everyone else to leave the room. He stated initially that he didn't see any need to be examined but then agreed to having his lungs listened to. He evidently had no problems seeing Dr Dockery on admission. CBC/BMP: 02/08/17 1106 02/08/17 1106 Significant Findings Laboratory Tests Test 02/07/17 04:00 02/08/17 11:06 Red Blood Count 4.13 MIL/MM3 (4.50-5.90) 4.24 MIL/MM3 (4.50-5.90) Hemoglobin 11.7 GM/DL (13.0-17.0) 12.4 GM/DL (13.0-17.0) Hematocrit 35.4 % (39.0-51.0) 36.4 % (39.0-51.0) Blood Urea Nitrogen 24 MG/DL (7-18) 21 MG/DL (7-18) Random Glucose 70 MG/DL (74-106) 148 MG/DL (74-106) Chloride Level 108 MEQ/L (98-107) Anion Gap 4 MEQ/L (5-15) Estimat Glomerular Filtration Rate 78 ML/MIN (>89) 81 ML/MIN (>89) Neutrophils (%) (Auto) 76.7 % (16.0-70.0) Monocytes (%) (Auto) 8.7 % (0.0-8.0) Imaging Last Impressions Hip and Pelvis X-Ray 02/06/17 165 Signed Impressions: Service Date/Time: Monday, February 06, 2017 17:18 - CONCLUSION: Right greater trochanteric fracture. Sofia Nicholson MD Chest X-Ray 02/06/171650 Signed Impressions: Service Date/Time: Monday, February 06, 2017 17:18 - CONCLUSION: No acute cardiopulmonary disease. Sofia Nicholson MD Lower Extremity CT 02/06/17 0000 Signed Impressions: Service Date/Time: Tuesday, February 07, 2017 00:34 - CONCLUSION: 1. Acute fracture involving the greater trochanter with approximately 2 mm of diastases of the fracture fragments. Deuce Martin Jr., MD PE at Discharge GEN: WDWN, NAD, comfortable CV: NRRR, no MRG LUNGS: CTAB MSK: No edema of BLE, no bruising of R hip NEURO: A&Ox3 Hospital Course 71 yo male admitted for closed R hip fracture. Based on CT findings, Orthopedics recommended non-operative management. Patient had an uncomplicated hospital course during which time pain control was titrated with oral agents and physical therapy was initiated. On hospital day 3 he was in good condition and cleared for discharge to a short-term rehab facility. Pt Condition on Discharge: Good Discharge Disposition: Discharge to SNF Discharge Instructions DIET: Follow Instructions for: Diabetic Diet Activities you can perform: Partial Weight Bearing Follow up Referrals: Orthopedics - 2 Weeks @ [facility] with Marcellus Morel MD PCP Follow-up - 1 Month New Medications: Calcium Carbonate-Vitamin D (Calcium 600+D 200) 600-200 Mg-Unit Tab 1 TAB PO BID for Nutritional Supplement, #90 TAB 0 Refills Ergocalciferol (Ergocalciferol) 50,000 Unit Cap 03922 UNITS PO Q7D for Nutritional Supplement, #8 CAP Hydrocodone-Acetaminophen (Hydrocodone-Acetaminophen) 7.5 Mg-325 Mg Tab 1 TAB PO Q4H PRN for PAIN, #60 TAB 0 Refills Walker with Front Wheels (Walker with Front Wheels) 1 Mis Mis EA .ROUTE DIRECTED, #1 0 Refills Continued Medications: Amlodipine (Amlodipine) 2.5 Mg Tab 2.5 MG PO DAILY for Blood Pressure Management, #30 TAB 0 Refills Aspirin (Aspirin) 81 Mg Chew 81 MG CHEW ONCE, #1 TAB 0 Refills Citalopram (Citalopram) 20 Mg Tab 20 MG PO DAILY for Control Depression, #30 TAB 0 Refills Glipizide (Glipizide) 5 Mg Tab 2.5 MG PO DAILY for Blood Sugar Management, #30 TAB 0 Refills Take 30 minutes before a meal Levothyroxine (Synthroid) 50 Mcg Tab 50 MCG PO DAILY for Thyroid, #30 TAB 0 Refills Lisinopril (Lisinopril) 40 Mg Tab 40 MG PO DAILY for Blood Pressure Management, #30 TAB 0 Refills Metformin (Metformin) 500 Mg Tab 500 MG PO BIDPC for Blood Sugar Management, #60 TAB 0 Refills Pravastatin (Pravastatin) 40 Mg Tab 40 MG PO DAILY for Cholesterol Management, #30 TAB 0 Refills Sitagliptin (Januvia) 100 Mg Tab 100 MG PO DAILY for Blood Sugar Management, #30 TAB 0 Refills Da Dockery MD Feb 09, 2017 5:32 pm
== END 2017-02-09 12:07 | DRG 536 ==
LOC: NEPC 16:37 → NEDA 18:18 → N06A 19:33
PROVIDERS: ADMIT Family Medicine; ATTEND Family Medicine
DX: S72.111A Displaced fracture of greater trochanter of right femur, initial encounter for closed fracture (principal); E11.9 Type 2 diabetes mellitus without complications; I10 Essential (primary) hypertension; E78.5 Hyperlipidemia, unspecified; F32.9 Major depressive disorder, single episode, unspecified; E07.9 Disorder of thyroid, unspecified; Z79.899 Other long term (current) drug therapy; Z79.84 Long term (current) use of oral hypoglycemic drugs; Z87.891 Personal history of nicotine dependence; W01.0XXA Fall on same level from slipping, tripping and stumbling without subsequent striking against object, initial encounter; Y93.01 Activity, walking, marching and hiking; Y92.008 Other place in unspecified non-institutional (private) residence as the place of occurrence of the external cause
CPT/HCPCS: 71045; 73502; 73700; 80048; 80053; 81001; 82948; 85007; 85025; 85027; 85610; 85730; 86850; 86900; 86901; 93005; 94150; 96374; 96375; J0131; J2270; J2405